=== PATIENT | male | born 1995 | race Caucasian/White ===

== ENCOUNTER 2016-10-03 10:54 | Emergency (ER) | payer OTHER ==
[~2016-10-03] VITALS: Ht 185.4 cm; Wt 72.6 kg
[2016-10-03 10:57] VITALS: BP 111/68
[2016-10-03] MEDS ORDERED: AZITHROMYCIN 250 MG TABLET PO ONE (11:30)
[2016-10-03] MEDS ORDERED: LIDOCAINE /MPF 1% VIAL 5 ML VIAL ONE (11:44)
[2016-10-03] MEDS ORDERED: CEFTRIAXONE 500 MG VIAL ONE (11:44)
[2016-10-03] MEDS ORDERED: AZITHROMYCIN 250 MG TABLET ONE (11:44)
[2016-10-03] MEDS: CEFTRIAXONE 500 MG VIAL IM ONE ×2 (11:49→11:58)
[2016-10-03 11:56] LABS: ADD UA MICROSCOPIC YES; KETONES,URINE Negative (NEGATIVE); LEUKOCYTE ESTERASE ,URINE Moderate (NEGATIVE)
[2016-10-03 11:59] LABS: ADD URINE CULTURE YES; WBC,URINE 21-50 /HPF (0-3)
== END 2016-10-03 12:17 | disposition home or self-care (01) ==
LOC: ER 10:56
DX: N39.0 Urinary tract infection, site not specified (principal)
CPT/HCPCS: 81001; 87086; 87491; 87591; 96372; 99284; A4606; J0696; J3490; Z7610; 81000-TC

== ENCOUNTER 2017-07-12 08:50 | Emergency (ER) | payer OTHER ==
[~2017-07-12] VITALS: Ht 188 cm; Wt 77.1 kg
[2017-07-12 08:55] VITALS: BP 116/73
[2017-07-12] MEDS ORDERED: TETRACAINE HCL/PF 0.5% UD 2 ML BOTTLE ONE (09:02)
[2017-07-12] MEDS ORDERED: IBUPROFEN 600 MG TABLET PO ONE ×2 (09:02→09:30)
[2017-07-12] MEDS ORDERED: FLUORESCEIN SODIUM OPHTH 1 EA STRIP ONE (09:02)
[2017-07-12] MEDS ORDERED: TETRACAINE HCL/PF 0.5% UD 2 ML BOTTLE OP ONE (09:30)
[2017-07-12] MEDS ORDERED: FLUORESCEIN SODIUM OPHTH 1 EA STRIP OP ONE (09:30)
== END 2017-07-12 09:31 | disposition home or self-care (01) ==
LOC: ER 08:53
DX: S05.01XA Injury of conjunctiva and corneal abrasion without foreign body, right eye, initial encounter (principal); J45.909 Unspecified asthma, uncomplicated; X58.XXXA Exposure to other specified factors, initial encounter; Y93.89 Activity, other specified; Y92.89 Other specified places as the place of occurrence of the external cause; Y99.8 Other external cause status
CPT/HCPCS: 99283; A4606; Z7610

== ENCOUNTER 2017-07-26 19:52 | Emergency (ER) | payer OTHER ==
[~2017-07-26] VITALS: Ht 188 cm; Wt 81.2 kg
[2017-07-26 19:58] VITALS: BP 141/89
[2017-07-26] MEDS ORDERED: LORAZEPAM 1 MG TABLET ONE (21:16)
[2017-07-26] MEDS ORDERED: LORAZEPAM 1 MG TABLET PO ONE (21:30)
== END 2017-07-26 21:27 | disposition home or self-care (01) ==
LOC: ER 19:59
DX: R07.89 Other chest pain (principal); F41.9 Anxiety disorder, unspecified; J45.909 Unspecified asthma, uncomplicated
CPT/HCPCS: 71010; 93005; 99284; A4606; Z7610

== ENCOUNTER 2017-10-10 09:40 | Emergency (ER) | payer OTHER ==
[~2017-10-10] VITALS: Ht 185.4 cm; Wt 78.5 kg
--- NOTE | 2017-10-10 09:50 | NUR ---
PRESENTS TO ER C/O ABD PAIN X 2 WKS, NAUSEA, DIARRHEA, NO VOMITING. A/OX 4. BREATHING EVEN AND UNLABORED. NO SOB, NAD, VITALS STABLE. SAFETY AND COMFORT MEASURES IN PLACE. AWAITING MD ORDERS.
[2017-10-10] MEDS ORDERED: ONDANSETRON HCL/PF 4 MG/2 ML VIAL ONE (09:55)
[2017-10-10] MEDS ORDERED: IV NS 0.9% 1,000 ML BAG IV ONE (10:00)
[2017-10-10] MEDS ORDERED: ONDANSETRON HCL/PF 4 MG/2 ML VIAL IVP ONE (10:00)
--- NOTE | 2017-10-10 10:05 | NUR ---
NEW IV STARTED ON LAC, 20 G. BLOOD DRAWN AND SENT TO LAB.
[2017-10-10 10:07] LABS: BASOPHILS % (AUTO) 0.4 % (0.0-2.0); EOSINOPHILS # (AUTO) 0.1 /CMM (0.0-0.7); EOSINOPHILS % (AUTO) 1.8 % (0.0-6.0); HEMATOCRIT 41 % (39-51); HEMOGLOBIN 14.1 g/dL (13.5-17.5); LYMPHOCYTES # (AUTO) 1.7 /CMM (0.8-4.8); LYMPHOCYTES % (AUTO) 43.1 % (20.0-44.0); MEAN CORPUSCULAR HEMOGLOBIN 30 PG (26.0-33.0); MEAN CORPUSCULAR HGB CONC 35 g/dl (31.0-36.0); MEAN CORPUSCULAR VOLUME 87 fL (80-96); MONOCYTES # (AUTO) 0.3 /CMM (0.1-1.30); MONOCYTES % (AUTO) 7.1 % (2.0-12.0); NEUTROPHILS # (AUTO) 1.9 /CMM (1.8-8.9); NEUTROPHILS % (AUTO) 47.6 % (43.0-81.0); PLATELET COUNT (AUTO) 229 /CMM (150-450); RDW COEFFICIENT OF VARIATION 11.6 (11.5-15.0); RED BLOOD CELL COUNT(AUTO) 4.65 MIL/uL (4.5-6.0)
--- NOTE | 2017-10-10 10:08 | NUR ---
PATIENT MEDICATED PER MD ORDERS.
[2017-10-10 10:22] LABS: CALCIUM, SERUM 8.7 mg/dL (8.5-10.1); CREATININE 0.7 mg/dL (0.6-1.3); POTASSIUM 3.9 mmol/L (3.5-5.1)
[2017-10-10 10:27] LABS: ALBUMIN 4.3 g/dL (3.4-5.0); BILIRUBIN,DIRECT 0.2 mg/dL (0.0-0.2); BILIRUBIN,TOTAL 0.6 mg/dL (0.2-1.0); TOTAL PROTEIN, SERUM 7.5 g/dL (6.4-8.2)
--- NOTE | 2017-10-10 11:35 | NUR ---
IV removed. Catheter intact and site benign. Pressure and 4x4 applied to site. No bleeding noted.
[2017-10-10 11:38] VITALS: BP 118/71
--- NOTE | 2017-10-10 11:39 | NUR ---
Patient discharged to home in stable condition. Written and verbal after care instructions given. Patient verbalizes understanding of instruction.
== END 2017-10-10 11:38 | disposition home or self-care (01) ==
LOC: ER 09:41
DX: R10.84 Generalized abdominal pain (principal); J45.909 Unspecified asthma, uncomplicated
CPT/HCPCS: 36415; 74021; 80048; 80076; 83690; 85025; 96361; 96374; 99285; A4606; J2405; J7030; Z7610